=== PATIENT | male | born 2000 | race Caucasian/White ===

== ENCOUNTER 2019-09-22 08:36 | Inpatient (IN) ==
[2019-09-22] MEDS ORDERED: ONDANSETRON INJ 2 MG/ML 2 ML VIAL IV PRN ×2 (09:37→15:57)
--- NOTE | 2019-09-22 09:49 | History & Physical Report ---
Date of Service September 22, 2019 Assessment & Plan (1) Hypotension: (2) Bradycardia: (3) Episode of syncope: - Admit to ICU - Blood culture x 2, lactic acid, CBC, BMP, lymes titre, mag and phos now - Urine culture - Reviewed outside hospital imaging which included CT of head which showed ch ronic changes of CP without acute findings, and CT of the chest which was negative for pulmonary findings. Will ask that the disc is uploaded into PACs system - Continue fluids - Checking Lyme, Ehrlichia, anaplasmosis and peripheral smear now - Continue IV doxycycline and Rocephin - s/p atropine 0.5 mg x 2 doses administered at OSH, Dopamine infusion started per ICU - Cardiology consult- Possible that the patient may require temporary cardiac pacemaker placed, keep n.p.o. for now with possible procedure - EKG reviewed showing sinus bradycardia with heart rate in the 40s (4) Cerebral palsy: - Chronic, High functioning individual, runs 2 miles per day, Works at [employer], engaged, has a 4-month-old son as well as is step father to 3-year-old daughter (5) OUSMANE (acute kidney injury): - Cr elevated at 1.14 and BUN of 19.6, however no other labs to compare to this, likely will improve with IV fluids, follow with am labs (6) Depression: - Home meds include sertraline and seroquel, has been off these meds due to lapse in insurance but plans to resume them as an outpatient once on his [employer] insurance. Will hold for now, consider resuming but initiate at starting doses; sertraline 25 mg daily and seroquel 25 mg HS and titrate up. (7) DVT prophylaxis: - teds, scds CODE: FULL Dispo: From home, likely to remain in the hospital x 1-2 days History of Present Illness Primary Care Provider: Humble Leon This is a 19 yo M with PMHx of Cerebral palsy and tobacco use of 1 and 1/5 ppd since age 11, who presents from [facility] with increased confusion, memory changes and headache and lightheadedness which started last night. The patient notes that this started last evening when he was getting up around 4:30 AM to get ready to go to work at [employer], and noticed that he was feeling more short of breath then followed with a episode of lightheadedness and then syncopal episode. His fiance who lives with him witnessed the event. He reports it only lasted a minute or so. No trauma sustained. Pt has difficulty recalling what happened afterwards but reports that it is slowly coming back to him. He reports running 2 miles a day at baseline and is a very active person. He walks every morning to work. Patient also does not have a car therefore his family cannot visit him. When presented to the ER he was found to be bradycardic in the 40s with lowest drop being in the high 30s, and hypotensive with BP in 70s/50s. He was administered atropin 0.5 mg x 2 doses with improvement of HR into the 70s and 80s and BP improved to 105/65. Upon arrival here to the ICU, pt remains bradycardic with HR in the 40s and dopamine infusion has been ordered to start. His BP is 99/45. WBC = 14 K. There is concern for tick borne illness so lyme, anaplasmosis, ehrlichia labs have been sent and pt has been started empirically on doxycycline. He has been admitted to our ICU for further workup. Allergies Allergy/AdvReac Type Severity Reaction Status Date / Time amoxicillin Allergy Unknown Verified 09/22/19 13:57 Home Medications Home Medications Medication Instructions Recorded Confirmed Type Seroquel 75 mg PO HS 09/22/19 09/22/19 History sertraline 75 mg PO DAILY 09/22/19 09/22/19 History Past Med/Surg History Medical History (Updated 09/23/19 @ 07:46 by Manfred Hooper) Cerebral palsy Depression Family History (Updated 09/23/19 @ 07:46 by Manfred Hooper) Other Family history non-contributory Social History Smoking Status: Current every day smoker Tobacco Cessation Education Requested by Patient: No Hx Alcohol Use: No Hx Substance Use: No Communication Ability: Effective Product Assurance Engineer Required: No Beliefs That Will Affect Care: None Current Living Situation: Family Feels Safe at Home: Yes Safety Concerns: Feels Safe At This Time Review of Systems Review of Systems: Constitutional: No fever, sweats or chills, no current lightheadedness Eyes: No diplopia, no worsening or blurred vision ENT: normal hearing, no trouble swallowing Respiratory: + as per hpi with approx 30 min of SOB preceding syncopal event. No cough, sputum, dyspnea at rest or on exertion Cardiovascular: No chest pain, tightness or palpitations Abdomen: No pain, nausea, vomiting, diarrhea or constipation Musculoskeletal: No joint pain, calf pain, swelling Neurologic: No weakness, numbness/tingling, or balance problems Psychiatric: No anxiety or depression Skin: No rash or itch Physical Exam Physical Exam: General: awake, alert, no apparent distress, thin Head: Normocephalic, atraumatic ENT: PERRL, EOMI, no pharyngeal exudate, mucous membranes moist Chest: Clear to auscultation, on room air, no adventitious breath sounds Cardiac: Sinus bradycardia with HR in 30-40s at rest, with movement for lunge exam and rolling over HR increased to 60. No murmur, no JVD, 2+ peripheral pulses, good capillary refill Abdominal: NABS x 4 quadrants, soft, nondistended, nontender to palpation, no rebound, guarding or tenderness Extremities: Normal inspection, no peripheral edema or erythema, calfs nontender to palpation Psych: Normal mood and affect Neuro: AAO x 3, strength intact bilaterally and rated 5/5, no motor deficits, speech is clear, no peripheral sensory deficits Skin: no rash or erythema Results & Data Results & Data ([facility]) Diagnostic Findings CT head Impression: Subtle low attenuation of posterior left parieto-occipital cortex. This could be artifact, but nonspiecific edema or encephalomalacia are possibilities. Generalized involutional changes of the brain are also suspected, greater than usually seen in this age category. If not previously performed, an MRI of the brain is recommended. CT of the head and brain Impression: No CT evidence of acute intracranial abnormality. ECG Additional Comments: Sinus bradycardia with HR in the 40s at bedside, starting dopamine gtt Code Status & VTE Plan Code Status Full code-Discussed with the patient at bedside Supervising Physician Co-Signing Physician Notes Attending Attestation and Admission Note: Pt seen/examined, chart reviewed, care plan d/w ENE Banegas. I agree with the paris components of her documentation. 19yo male with cerebral palsy presented to [facility] after syncopal event. Upon presentation there was noted to be markedly hypotensive and bradycardic. This persisted despite IV fluids and arrangements were made for transfer at [facility] ICU. Upon arrival here placed on dopamine infusion with improvement in SBP to >100. HRs improved to high 40s/50s. Of note - with moving in bed his HR rapidly increases to >60. During my assessment patient reports feeling better. No dizziness. PMH, PSH, allergies, meds, sochx, famhx - reviewed vitals-alma rosa, BP now normal; temp wnl gen - mild dysmorphic appearance neck - no JVD heart - alma rosa, s1s2, no murmur lungs - CTA b/l abd - soft ext - no edema labs - lyme screen neg; TSH wnl; lytes wnl echo - normal lv function; normal valves A/P: 1. syncope - presumably 2nd to severe bradycardia and hypotension 2. bradycardia/hypotension - uncertain etiology; TSH wnl; not on AV cha agents; echo wnl; lytes stable; lyme neg; appreciate cardiology consult and ICU assistance; improved on dopamine. Attempt to wean off next 24 hours - if bradycardia persists need for pacer?? Defer to cardiology/EP. Could bradycardia be a "anshul's effect" from a NURSE SPECIAL process?? CT head with abnormalities noted - consider MRI brain. Manfred Hooper MD PG Care Time/CCT Total # of Minutes Spent Total Time Spent with Patient: Total time spent is greater than 50% in coordination of care (as documented) at patient's floor/unit and/or counseling patient: Coding Level of Care Code 00330 Initial Inpt Care Lvl 3 Diagnoses Hypotension I95.9 Bradycardia R00.1 Episode of syncope R55 Cerebral palsy G80.9 OUSMANE (acute kidney injury) N17.9 Depression F32.9 DVT prophylaxis Z29.9
[2019-09-22] MEDS ORDERED: STAT IV Infusion **Titration per Protocol STA (11:56)
[2019-09-22] MEDS ORDERED: DOPAMINE / D5W 400 MG/250 ML BAG IV SCH (12:00)
[2019-09-22] MEDS ORDERED: DOPamine 400MG / 250ML D5W IV ONE ×2 (12:05→12:48)
[2019-09-22] MEDS ORDERED: PATIENT'S HEIGHT AND/OR WEIGHT NEEDED SCH (12:45)
[2019-09-22 12:46] LABS: Basophils # (auto) 0.03 K/uL (0-0.2); Basophils % (auto) 0.3 %; Eosinophils # (auto) 0.12 K/uL (0-0.5); Eosinophils % (auto) 1.3 %; Hematocrit (blood only) 42.8 % (42-52); Hemoglobin 14.5 g/dL (14.0-18.0); Immature Granulocytes # (auto) 0.02 K/uL (0.00-0.02); Immature Granulocytes % (auto) 0.2 %; Lymphocytes # (auto) 2.28 K/uL (1.2-3.4); Lymphocytes % (auto) 24.4 %; Mean Corpuscular Hemoglobin 30.3 pg (25-34); Mean Corpuscular Volume 89.4 fL (80-100); Mean Platelet Volume 12.6 fL (7.4-10.4); Monocytes # (auto) 0.83 K/uL (0.11-0.59); Monocytes % (auto) 8.9 %; Neutrophils # (auto) 6.06 K/uL (1.4-6.5); Neutrophils % (auto) 64.9 %; Platelet Count 160 K/uL (130-400); RDW Coefficient of Variation 12.8 % (11.5-14.5); RDW Standard Deviation 41.8 fL (36.4-46.3); Red Blood Count 4.79 M/uL (4.7-6.1); White Blood Count 9.34 K/uL (4.8-10.8)
[2019-09-22] MEDS ORDERED: PATIENT'S ALLERGY INFO NEEDS ENTERED SCH (13:00)
[2019-09-22 13:02] LABS: Alanine Aminotransferase 12 U/L (12-78); Albumin Level 3.9 gm/dl (3.4-5.0); Aspartate Aminotransferase 16 U/L (15-37); BUN Creatinine Ratio 16.1 (10-20); Blood Urea Nitrogen 17 mg/dl (7-18); Calcium 8.6 mg/dl (8.5-10.1); Carbon Dioxide 25 mmol/L (21-32); Chloride 109 mmol/L (98-107); Est GFR (African American) 116.5; Est GFR (Non-African American) 100.5; Glucose 82 mg/dl (70-99); Magnesium 2.2 mg/dl (1.8-2.4); Potassium 4.2 mmol/L (3.5-5.1); Sodium 138 mmol/L (136-145)
[2019-09-22 13:05] LABS: Albumin Globulin Ratio 1.2 (0.9-2); Alkaline Phosphatase 47 U/L (45-117); Bilirubin,Total 1.1 mg/dl (0.2-1); Globulin 3.3 gm/dl (2.5-4.0); Phosphorus 3.2 mg/dl (2.5-4.9); Total Protein 7.2 gm/dl (6.4-8.2)
[2019-09-22 13:10] LABS: Mean Corpuscular Hgb Conc 33.9 g/dL (32-36)
[2019-09-22] MEDS ORDERED: cefTRIAXone SODIUM 2,000 MG in DEXTROSE 5% 50 ML IV SCH (13:30)
[2019-09-22] MEDS ORDERED: SODIUM CHLORIDE 0.9% 1000ML 500 ML IV ONE (13:30)
[2019-09-22] MEDS ORDERED: GLUCAGON 3 MG in SYRINGE 0 ML IV STA (13:39)
[2019-09-22] MEDS: DOXYCYCLINE HYCLATE 100 MG in DEXTROSE 5% 100 ML IV SCH (13:50)
[2019-09-22 13:51] LABS: Lyme Ab IgG w/WB Rflx Negative (Negative); Lyme Ab IgM w/WB Rflx Negative (Negative)
--- NOTE | 2019-09-22 13:57 | Critical Care Consultation ---
Date of Consultation September 22, 2019 Assessment & Plan (1) Symptomatic bradycardia: --Symptomatic bradycardia Patient is not on any beta-blockers any blood pressure medications UDS is positive only for marijuana, TSH is within normal limit There is questionable history of patient taking something from the street --> We will give empiric glucagon as an antidote for beta-hai Lyme titers have been sent which are negative --> Rocephin which was empirically started will be discontinued Continue with doxycycline for the time being. I will start the patient on dopamine to increase the heart rate. At the time of examination when the patient is talking his heart rate goes up to 70s and it is maintaining good blood pressure. There is no emergent need for transvenous pacing. Cardiology has been consulted and they agree with the plan. --Daily marijuana use Advised to quit --Daily smoker Advised to quit --Prophylaxis VTE: IPC's GI: None Lines: Peripheral Diet: Regular Plan: Monitor for any signs of hemodynamic compromise. We will put a transvenous pacemaker if need be I have personally spent 63 minutes of critical care time in the direct management of this patient. This is a life/limb threatening event. This includes time spent evaluating patient, direct bedside care, chart review, placing orders, interpretation of diagnostic studies, discussion with consultants, patient, and family members, as well as other required patient management activities. This time is exclusive of all separately billable procedures, and teaching time and separate from and in addition to any other critical care service time. Please note the above document was generated using voice recognition software. It may contain grammatical, syntax or spelling errors. (2) Hypotension: (3) Depression: (4) Cerebral palsy: History of Present Illness Attending Physician: Manfred Hooper History of Present Illness 19-year-old male with past medical history of mild cerebral palsy, active smoker, does marijuana on a daily basis was brought in from [facility] because of syncopal episodes which she had since last 2 nights. His fiance witnessed the syncopal episode there was no seizure-like activity. When he was presented to the ER his heart was in the 40s with lowest being in high 30s and hypotensive episode of 70s over 50s. He did get 0.5 mg x 2 of atropine and his heart rate went up to 70s and blood pressure improved to systolic 105. When he came to the ICU at the time of examination patient denies any chest pain, no shortness of breath, no dizziness. His heart rate is in the mid 40s to low 50s. Map blood pressure is low 60s to mid 60s. Patient denies any nausea or vomiting. Patient denies any fever or chills. No dysuria, no diarrhea. Patient denies any recent travel history. He denies any tick bite. He says that he is usually very careful about them. Patient was asked if he is doing any other illicit drugs he denied. But patient's father called and said that he is not sure if he is taking anything from the street. There is no personal or family history of any heart disease. No personal family history of lung disease or sarcoidosis. No autoimmune disease personally or in the family. Social history: Daily smoker, marijuana use, social alcohol Allergies Allergy/AdvReac Type Severity Reaction Status Date / Time amoxicillin Allergy Unknown Verified 09/22/19 13:57 Home Medications Home Medications Medication Instructions Recorded Confirmed Type Seroquel 75 mg PO HS 09/22/19 09/22/19 History sertraline 75 mg PO DAILY 09/22/19 09/22/19 History Patient History Medical History (Updated 09/22/19 @ 14:47 by Louie Maloney MD) Depression Social History Smoking Status: Current every day smoker Tobacco Cessation Education Requested by Patient: No Hx Alcohol Use: No Hx Substance Use: No Communication Ability: Effective System Trainer Required: No Beliefs That Will Affect Care: None Current Living Situation: Family Feels Safe at Home: Yes Safety Concerns: Feels Safe At This Time Review of Systems Review of Systems: All systems reviewed & are unremarkable except as noted in HPI & below Physical Exam Physical Exam: Constitutional: No acute distress HEENT: EOMI, PERRLA Respiratory system: Good air entry bilaterally, no wheeze, no rhonchi, no crackles CVS: S1-S2 positive, no murmurs or gallops, bradycardia Abdomen: Soft, nontender, nondistended, positive bowel sounds x4 Extremities: +2 pulses bilaterally radialis/ dorsalis pedis, no cyanosis, no edema Neuro: Awake alert oriented x3 Psych: Normal mood and affect G/U: No Luna Bedside Ultrasound: Lung: No B-lines appreciated bilaterally, no pleural effusion bilaterally Heart: Good fraction, RVOT normal in size, no pericardial effusion, IVC normal in size Abdomen: No free fluid Results & Data Results & Data ([facility]) Laboratory Results 09/22/19 12:22 09/22/19 12:22 [facility] Procedure Codes (Charges) Pulmonary/Thoracic Procedure 1: Pulmonary and Thoracic: 15198 US, Chest, real time with imaging doc umentation Coding Level of Care Code Critical Care 1st 30-74 mins Diagnoses Symptomatic bradycardia R00.1 Hypotension I95.9 Depression F32.9 Cerebral palsy G80.9 CPT Codes Pulmonary/Thoracic - Pulmonary and Thoracic: 80313 US, Chest, real time with imaging documentation ([id number]) Time Spent (min) 61
--- NOTE | 2019-09-22 14:24 | Cardiology Consultation ---
Date of Consultation September 22, 2019 Assessment & Plan (1) Symptomatic bradycardia: (2) Hypotension: ASSESSMENT/PLAN: 1. Symptomatic sinus bradycardia: He is now asymptomatic while on dopamine with mild bradycardia to normal heart rate and normalized blood pressure. Continue dopamine to maintain adequate heart rate. Atropine if needed. Continue to search for reversible causes of bradycardia. Avoid any AV cha blocking agents or other medications that could slow intrinsic heart rate. When able, wean dopamine. If unable to wean dopamine, and no reversible cause noted, may require pacemaker placement. There is no urgent indication at this time as he has stabilized with low-dose dopamine. Will discuss with zone maintenance technician to make them aware. Recommend drug screen given his father's concern. TSH normal. Echocardiogram recommended. No role for transcutaneous pacing at this time. 2. Hypotension: Blood pressure reportedly improved after atropine when presenting with heart rate in the upper 30s to lower 40s. Blood pressure has normalized while on low-dose dopamine. He has received IV fluids as well. Infectious workup pending. 3. Disposition: Cardiology will continue to follow. Plan of care has been discussed with ICU team. Highly complex medical issues. 35 minutes critical care time for symptomatic bradycardia requiring inotropic infusion. Time also spent discussing patient care with critical care team and reviewing records. History of Present Illness Reason for Consultation: Bradycardia and hypotension Requesting Physician: Candace Youngblood Attending Physician: Manfred Hooper History of Present Illness Mr. Sherman is a 19-year-old gentleman with history significant for mild cerebral palsy who was transferred here from [facility] for hypotension and bradycardia. The history that he provided me differs from the presenting history and physical. According to the presenting history and physical, he noted shortness of breath and lightheadedness at approximately 4:30 a.m. when he was getting re harris to go to work at [employer]. He reported a syncopal event. This apparently was witnessed by his fiancee, lasting only a minute or so, but no trauma. When specifically asked about syncope, he denies syncope to me, despite being asked several times. He states that he was lightheaded when he woke up at approximately 4:30 a.m. and did not know where he was. He thinks that he may have fallen asleep at 1 point while laying in bed but states that that would be typical for him as he was tired. he does agree that he may have been disoriented and therefore his fiancee urged that he be evaluated at the hospital. Apparently when he presented to the emergency department his heart rate was in the 40s and at times in the upper 30s. He was hypotensive with a blood pressure of 70s/50s. He was given atropine 0.5 mg x2 doses with improvement of heart rate into the 70s and 80s as well as normalization of his blood pressure. When he arrived here in the ICU, his heart rate was in the 40s and he was started on dopamine infusion at 5 micrograms/kilogram per minute with improvement of his heart rate. He is now mostly in the 40s to 50s and with conversation, can increase into the 60s. His blood pressure has stabilized. He states that he feels back to usual. He believes that this whole incident may be due to the fact that he has been avoiding eating, trying to ignore his hunger pains. When asked about substance abuse, he admits that he smokes marijuana 3 times per day. When asked if he uses any other illicit drugs or if his marijuana could be laced with other drugs, he stated no and then abruptly stated that he has said enough about that. According to ICU staff, his father apparently called with concerns that he may be using some illicit drug. He denies any tick bite, but he is being evaluated for tick-borne illness and has empirically been started on doxycycline. He denies chest pain, rash, fevers, chills, abdominal pain, nausea, vomiting, diarrhea, melena, hematochezia, hematuria, or other bleeding. He denies palpitations. He has been prescribed Seroquel and Zoloft approximately 1 year ago but admits that he has not been taking it for almost a year. Review of systems: As above. Family history: Grandfather from [place] at the age of 73. No known premature CAD. Social history: Has smoked 1.5 packs of cigarettes per day since the age of 11. No alcohol. Admits to smoking marijuana 3 times per day. Lives with his fiancee. He has 2 children ( 3 years and 4 months in age). He works at [employer]. He lives in [place]. He is unaccompanied. Allergies Allergy/AdvReac Type Severity Reaction Status Date / Time amoxicillin Allergy Unknown Verified 09/22/19 13:57 Home Medications Home Medications Medication Instructions Recorded Confirmed Type Seroquel 75 mg PO HS 09/22/19 09/22/19 History sertraline 75 mg PO DAILY 09/22/19 09/22/19 History Patient History Medical History (Updated 09/22/19 @ 14:47 by Louie Maloney MD) Depression Social History Smoking Status: Current every day smoker Tobacco Cessation Education Requested by Patient: No Hx Alcohol Use: No Hx Substance Use: No Communication Ability: Effective Compensation Agent Required: No Beliefs That Will Affect Care: None Current Living Situation: Family Feels Safe at Home: Yes Safety Concerns: Feels Safe At This Time Physical Exam Physical Exam: Gen.: No acute distress. Alert and oriented. HEENT: Anicteric sclera. Neck: No JVD. No bruits. Normal carotid upstrokes bilaterally. Cardiac: PMI was nondisplaced. No ventricular heave. Regular with episodes of irregularity. Normal S1-S2. No murmurs, rubs, or gallops. Pulmonary: Clear to auscultation bilaterally without wheezes, rales, or rhonchi. Abdomen: Soft, nontender, nondistended, with normoactive bowel sounds. No bruits noted. Extremities: 2+ radial pulses bilaterally. 2+ posterior tibialis pulses bilaterally. No edema or cyanosis. Psychiatric: Affect appears appropriate. Results & Data ([facility]) Vital Signs (Past 12 Hours) oxygen saturation 95% on room air. Temperature 36.6 C. Respiration rate 18. heart rate 40s to 60s. Systolic blood pressure now 100s mmHg. Laboratory Results Laboratory Results - last 24 hr 09/22/19 09/22/19 09/22/19 12:20 12:20 12:20 WBC RBC Hgb Hct MCV MCH MCHC RDW Std Deviation RDW Coeff of Jovanni Plt Count MPV Immature Gran % (Auto) Neut % (Auto) Lymph % (Auto) [place] % (Auto) Eos % (Auto) Baso % (Auto) Neut # (Auto) Lymph # (Auto) [place] # (Auto) Eos # (Auto) Baso # (Auto) Immature Gran # (Auto) Peripher Smr Path Cons Sodium Potassium Chloride Carbon Dioxide Anion Gap BUN Creatinine Est Cr Clr Drug Dosing Est GFR ( Amer) Est GFR (Non-Af Amer) BUN/Creatinine Ratio Glucose Lactate 0.6 Calcium Phosphorus Magnesium Total Bilirubin AST ALT Alkaline Phosphatase Total Protein Albumin Globulin Albumin/Globulin Ratio TSH Nasal Screen MRSA (PCR) Anaplasma Smear A. phagocytophilum DNA Lyme Disease IgG Ab Lyme Disease IgM Ab COVID-19 Eval Order Covid19 Done at [facility] COVID-19 PCR NEGATIVE 09/22/19 09/22/19 09/22/19 12:22 12:22 12:22 WBC 9.34 RBC 4.79 Hgb 14.5 Hct 42.8 MCV 89.4 MCH 30.3 MCHC 33.9 RDW Std Deviation 41.8 RDW Coeff of Jovanni 12.8 Plt Count 160 MPV 12.6 H Immature Gran % (Auto) 0.2 Neut % (Auto) 64.9 Lymph % (Auto) 24.4 [place] % (Auto) 8.9 Eos % (Auto) 1.3 Baso % (Auto) 0.3 Neut # (Auto) 6.06 Lymph # (Auto) 2.28 [place] # (Auto) 0.83 H Eos # (Auto) 0.12 Baso # (Auto) 0.03 Immature Gran # (Auto) 0.02 Peripher Smr Path Cons Sodium 138 Potassium 4.2 Chloride 109 H Carbon Dioxide 25 Anion Gap 4.0 BUN 17 Creatinine 1.06 Est Cr Clr Drug Dosing Not Reportable Est GFR ( Amer) 116.5 Est GFR (Non-Af Amer) 100.5 BUN/Creatinine Ratio 16.1 Glucose 82 Lactate Calcium 8.6 Phosphorus 3.2 Magnesium 2.2 Total Bilirubin 1.1 H AST 16 ALT 12 Alkaline Phosphatase 47 Total Protein 7.2 Albumin 3.9 Globulin 3.3 Albumin/Globulin Ratio 1.2 TSH Nasal Screen MRSA (PCR) Anaplasma Smear A. phagocytophilum DNA Lyme Disease IgG Ab Negative Lyme Disease IgM Ab Negative COVID-19 Eval Order COVID-19 PCR 09/22/19 09/22/19 09/22/19 12:22 12:22 12:22 WBC RBC Hgb Hct MCV MCH MCHC RDW Std Deviation RDW Coeff of Jovanni Plt Count MPV Immature Gran % (Auto) Neut % (Auto) Lymph % (Auto) [place] % (Auto) Eos % (Auto) Baso % (Auto) Neut # (Auto) Lymph # (Auto) [place] # (Auto) Eos # (Auto) Baso # (Auto) Immature Gran # (Auto) Peripher Smr Path Cons Cancelled Sodium Potassium Chloride Carbon Dioxide Anion Gap BUN Creatinine Est Cr Clr Drug Dosing Est GFR ( Amer) Est GFR (Non-Af Amer) BUN/Creatinine Ratio Glucose Lactate Calcium Phosphorus Magnesium Total Bilirubin AST ALT Alkaline Phosphatase Total Protein Albumin Globulin Albumin/Globulin Ratio TSH 1.140 Nasal Screen MRSA (PCR) Anaplasma Smear Cancelled A. phagocytophilum DNA Pending Lyme Disease IgG Ab Lyme Disease IgM Ab COVID-19 Eval Order COVID-19 PCR 09/22/19 12:23 WBC RBC Hgb Hct MCV MCH MCHC RDW Std Deviation RDW Coeff of Jovanni Plt Count MPV Immature Gran % (Auto) Neut % (Auto) Lymph % (Auto) [place] % (Auto) Eos % (Auto) Baso % (Auto) Neut # (Auto) Lymph # (Auto) [place] # (Auto) Eos # (Auto) Baso # (Auto) Immature Gran # (Auto) Peripher Smr Path Cons Sodium Potassium Chloride Carbon Dioxide Anion Gap BUN Creatinine Est Cr Clr Drug Dosing Est GFR ( Amer) Est GFR (Non-Af Amer) BUN/Creatinine Ratio Glucose Lactate Calcium Phosphorus Magnesium Total Bilirubin AST ALT Alkaline Phosphatase Total Protein Albumin Globulin Albumin/Globulin Ratio TSH Nasal Screen MRSA (PCR) Pending Anaplasma Smear A. phagocytophilum DNA Lyme Disease IgG Ab Lyme Disease IgM Ab COVID-19 Eval Order COVID-19 PCR Diagnostic Findings Telemetry personally reviewed: Sinus rhythm. No high-grade AV block noted. Medications Administered Current Inpatient Medications Doxycycline Hyclate 100 mg/ (Dextrose) 110 mls @ 50 mls/hr IV Q12H REPLACED BY [facility] Stop: 09/24/19 13:29 Last Admin: 09/22/19 13:50 Dose: 50 mls/hr Documented by: Dopamine HCl/Dextrose (Dopamine / D5w) 400 mg in 250 mls @ 10.65 mls/hr IV .[id number] REPLACED BY [facility]; Protocol Stop: 10/22/19 11:59 Last Admin: 09/22/19 14:16 Dose: 5 mcg/kg/min, 10.7 mls/hr Documented by: Ceftriaxone Sodium 2,000 mg/ (Dextrose) 70 mls @ 100 mls/hr IV Q24H REPLACED BY [facility]; Protocol Stop: 10/02/19 13:29 Last Admin: 09/22/19 14:15 Dose: 100 mls/hr Documented by: Ondansetron HCl (Ondansetron Inj 2 Mg/Ml 2 Ml Vial) 4 mg IV Q4H PRN PRN Reason: Nausea And Vomiting Stop: 10/22/19 09:36 PG Care Time/CCT Total # of Minutes Spent Total Time Spent with Patient: Total time spent is greater than 50% in coordination of care (as documented) at patient's floor/unit and/or counseling patient: Critical Care Time: Yes Total Critical Care Time: 35 Coding Level of Care Code None Diagnoses Symptomatic bradycardia R00.1 Hypotension I95.9 Additional Codes Critical Care Time - Critical Care Time: Yes ([id number]) Comment Critical care time
--- NOTE | 2019-09-22 15:32 | XCELERA ---
[id number]
[2019-09-22 16:21] LABS: Appearance Urine Clear (Clear); Bilirubin Urine Negative (Negative); Blood Urine Negative (Negative); Color Urine Yellow; Glucose Urine UA Negative (Negative); Ketones Urine 1+ (Negative); Leukocyte Esterase Urine Negative (Negative); Nitrite Urine Negative (Negative); Protein Urine Negative (Negative); Specific Gravity Urine 1.019 (1.000-1.030); Urobilinogen Urine Negative (Negative); pH Urine 5.5 (4.5-7.5)
[2019-09-22 16:50] LABS: Amphetamines+Metham, Urine Neg (Neg); Barbiturates, Urine Neg (Neg); Benzodiazepine, Urine Neg (Neg); Cocaine, Urine Neg (Neg); MDMA (Ecstacy), Urine Neg (Neg); Methadone, Urine Neg (Neg); Opiate, Urine Neg (Neg); Phencyclidine, Urine Neg (Neg)
--- NOTE | 2019-09-22 19:17 | XRay Report ---
XR chest 1V portable HISTORY: Shortness of breath. COMPARISON: None. FINDINGS: The lungs are clear. Cardiac silhouette is normal in size. No pleural effusions. No pneumot horax. IMPRESSION: No acute process. ACT 112: Negative or not required by law. Electronically signed by: Juma Trujillo M.D. 09/22/2019 7:16 PM
[2019-09-23] MEDS: DOXYCYCLINE HYCLATE 100 MG in DEXTROSE 5% 100 ML IV SCH (01:26)
[2019-09-23 04:34] LABS: Basophils # (auto) 0.02 K/uL (0-0.2); Basophils % (auto) 0.2 %; Eosinophils # (auto) 0.21 K/uL (0-0.5); Eosinophils % (auto) 2.1 %; Hematocrit (blood only) 43.8 % (42-52); Hemoglobin 14.5 g/dL (14.0-18.0); Immature Granulocytes # (auto) 0.02 K/uL (0.00-0.02); Immature Granulocytes % (auto) 0.2 %; Lymphocytes # (auto) 3.37 K/uL (1.2-3.4); Lymphocytes % (auto) 33.9 %; Mean Corpuscular Hemoglobin 29.1 pg (25-34); Mean Corpuscular Hgb Conc 33.1 g/dL (32-36); Monocytes % (auto) 12.1 %; Neutrophils # (auto) 5.12 K/uL (1.4-6.5); Neutrophils % (auto) 51.5 %; Platelet Count 165 K/uL (130-400); RDW Coefficient of Variation 12.8 % (11.5-14.5); RDW Standard Deviation 40.9 fL (36.4-46.3); Red Blood Count 4.98 M/uL (4.7-6.1); White Blood Count 9.94 K/uL (4.8-10.8)
[2019-09-23 04:56] LABS: BUN Creatinine Ratio 14.2 (10-20); Blood Urea Nitrogen 13 mg/dl (7-18); Calcium 8.5 mg/dl (8.5-10.1); Carbon Dioxide 24 mmol/L (21-32); Chloride 109 mmol/L (98-107); Est GFR (African American) 136.5; Est GFR (Non-African American) 117.8; Glucose 107 mg/dl (70-99); Magnesium 2.1 mg/dl (1.8-2.4); Phosphorus 3.7 mg/dl (2.5-4.9); Potassium 3.6 mmol/L (3.5-5.1); Sodium 140 mmol/L (136-145)
[2019-09-23] MEDS ORDERED: POTASSIUM CHLORIDE 20 MEQ TABCR PO STA (05:35)
--- NOTE | 2019-09-23 06:34 | Electrocardiogram Report ---
Test Reason : Blood Pressure : / mmHG Vent. Rate : 040 BPM Atrial Rate : 040 BPM P-R Int : 158 ms QRS Dur : 102 ms QT Int : 482 ms P-R-T Axes : 073 091 076 degrees QTc Int : 392 ms Marked sinus bradycardia Rightward axis Abnormal ECG No previous ECGs available Confirmed by Louie Maloney ([id number]) on 09/23/2019 6:34:26 AM Referred By: REFERRED SELF Confirmed By:Louie Maloney
--- NOTE | 2019-09-23 08:50 | Critical Care Progress Note ---
Date of Service September 23, 2019 Assessment & Plan (1) Symptomatic bradycardia: --Symptomatic bradycardia Patient is not on any beta-blockers any blood pressure medications UDS is positive only for marijuana, TSH is within normal limit There is questionable history of patient taking something from the street --> s/p 1 dose of glucagon on 09/22/2019 Lyme titers have been sent which are negative --> Rocephin which was empirically started will be discontinued Continue with doxycycline for the time being. On dopamine currently. There is no emergent need for transvenous pacing. Nausea board --Daily marijuana use Advised to quit --Daily smoker Advised to quit --History of mild cerebral palsy Patient called in to make his own decisions --History of depression No suicidal ideation Not taking any medication since last couple of months as he has no insurance --Prophylaxis VTE: IPC's GI: None Lines: Peripheral Diet: Regular Plan: So far no reversible etiology of symptomatic bradycardia has been identified. Try to titrate off dopamine and see if the patient's heart rate and blood pressure goes down. If the patient continues to have bradycardia and hypotension off dopamine will likely need pacemaker to be placed. I have personally spent 37 minutes of critical care time in the direct management of this patient. This is a life/limb threatening event. This includes time spent evaluating patient, direct bedside care, chart review, placing orders, interpretation of diagnostic studies, discussion with consultants, patient, and family members, as well as other required patient management activities. This time is exclusive of all separately billable procedures, and teaching time and separate from and in addition to any other critical care service time. Please note the above document was generated using voice recognition software. It may contain grammatical, syntax or spelling errors. (2) Hypotension: (3) Depression: (4) Cerebral palsy: Admission and Anticipated Discharge Date Admission Date: September 22, 2019 Subjective Patient seen and examined at bedside. No acute distress, no adverse events overnight. Later last evening patient had an episode of vomiting. No repeat episodes. Patient was able to eat dinner without any issues. Patient has been on dopamine 5. He has been bradycardic but asymptomatic. Map Is been greater than 65 Denies any dizziness, no shortness of breath, no palpitation, no headache, no blurry vision. Review of Systems Review of Systems: All systems reviewed & are unremarkable except as noted in HPI & below Physical Exam Physical Exam: Constitutional: No acute distress HEENT: EOMI, PERRLA Respiratory system: Good air entry bilaterally, no wheeze, no rhonchi, no crackles CVS: S1-S2 positive, no murmurs or gallops, bradycardia Abdomen: Soft, nontender, nondistended, positive bowel sounds x4 Extremities: +2 pulses bilaterally radialis/ dorsalis pedis, no cyanosis, no edema Neuro: Awake alert oriented x3 Psych: Normal mood and affect G/U: No [place] Skin: no rashes, warm and dry Lymphatic: no cervical or axillary lymphadenopathy Results & Data Results & Data ([facility]) Vital Signs (Past 12 Hours) Vital Signs Temp Pulse Resp BP Pulse Ox Pulse Ox 09/23/19 08:00 40 L 98 09/23/19 05:25 48 L 22 107/59 L 97 09/23/19 04:55 41 L 16 112/55 L 98 09/23/19 04:40 46 L 11 L 117/71 97 09/23/19 04:26 41 L 18 126/50 L 97 09/23/19 04:10 43 L 12 124/65 97 09/23/19 04:00 39 L 12 97 09/23/19 03:55 45 L 12 122/65 97 09/23/19 03:40 36.6 C 53 L 18 94/69 L 94 09/23/19 03:25 41 L 17 112/67 97 09/23/19 03:10 50 L 12 111/51 L 98 09/23/19 02:55 42 L 15 108/59 L 97 09/23/19 02:40 43 L 18 108/57 L 97 09/23/19 02:25 45 L 16 110/56 L 97 09/23/19 02:10 45 L 15 109/54 L 99 09/23/19 02:00 48 L 20 96 09/23/19 01:55 43 L 12 102/56 L 97 09/23/19 01:40 44 L 15 112/60 97 09/23/19 01:26 41 L 15 99/65 L 98 09/23/19 01:10 54 L 14 103/55 L 95 09/23/19 00:55 43 L 13 113/38 L 94 09/23/19 00:10 52 L 15 107/50 L 98 09/23/19 00:00 42 L 20 98 09/22/19 23:55 48 L 24 109/44 L 98 09/22/19 23:40 45 L 13 95/52 L 98 09/22/19 23:25 52 L 13 121/63 98 09/22/19 23:10 36.7 C 46 L 20 111/46 L 97 09/22/19 22:42 47 L 22 107/48 L 96 09/22/19 22:10 55 L 20 93/59 L 97 09/22/19 21:55 53 L 22 114/51 L 98 09/22/19 21:39 49 L 19 118/55 L 97 09/22/19 21:25 44 L 13 120/50 L 95 09/22/19 21:13 49 L 20 112/49 L 100 09/22/19 21:10 55 L 22 65/57 L 97 09/22/19 20:55 54 L 17 102/49 L 99 09/23/19 04:23 09/23/19 04:23 Coding Level of Care Code Critical Care 1st 30-74 mins Diagnoses Symptomatic bradycardia R00.1 Hypotension I95.9 Depression F32.9 Cerebral palsy G80.9 Time Spent (min) 37
--- NOTE | 2019-09-23 09:51 | Cardiology Progress Note ---
Date of Service September 23, 2019 Assessment & Plan (1) Symptomatic bradycardia: (2) Hypotension: ASSESSMENT/PLAN: 1. Bradycardia: Patient did present with significant bradycardia. With this was the etiology for his symptoms or hypotension is unclear. his dopamine infusion was discontinued at approximately 8 a.m. this morning. While his heart rate continues to be low at rest, he is not symptomatic and his blood pressure also seems reasonable given his age and body weight. The patient mentions that he runs to work approximately 2 miles several times per week. He also walks home. Generally speaking he is an active individual who does not have symptoms associated with activity. More recently he has had some symptoms of exercise intolerance and "syncope" when walking home from work. However, he freely admits that he does not eat and drink enough and that it has been very hot recently. He actually has not had the symptoms over the past 2 weeks. I think would be unusual for him to develop such significant sinus node dysfunction in such a short time frame. I think would be unusual for him to be able to jog to work a few days ago and require a pacemaker today. I suspect he has a lower heart rate due to conditioning in age. He is very thin, but does not appear to have anorexia. Low blood pressure and low heart rate could be associated with adrenal insufficiency, but this appears to have resolved without any specific intervention. He had some mild gastrointestinal symptoms and mental confusion leading up to admission, but no back pain or abdominal discomfort suggestive of adrenal insufficiency. He may in fact have abnormal sinus node function, but in the absence of symptoms does not require any specific intervention. Outside of a permanent pacemaker the only potential intervention would be oral theophylline. I would advocate having him ambulate around the fine. If his heart rate rises appropriately and he is asymptomatic then no specific intervention is required at this time. However, he should be encouraged to maintain a good diet with adequate hydration. He should have some form of outpatient follow-up in order to reassess his heart rate and symptoms. 2. Hypotension: At the time my evaluation he had been off of dopamine for approximately 1 hour. His blood pressure was around 100 systolic. I suspect his blood pressure runs on the lower side given his age and body weight. Admission and Anticipated Discharge Date Admission Date: September 22, 2019 Subjective This morning patient claims to be feeling well. He states that he is anxious to get up out of bed am being ambulatory. He did report some nausea an episode of vomiting yesterday, but tolerated as breakfast and has no abdominal com plaints today. He is not reporting dizziness or lightheadedness. He is not reporting symptoms of chest discomfort. No breathing difficulty. The cognitive dysfunction described at the time of admission also appears to have resolved. Review of Systems Review of Systems: Per HPI Physical Exam Physical Exam: The patient is alert and oriented. Mood and affect appeared normal. He answered all questions appropriately. HEENT: Pupils are equal and reactive to light and accommodation. Extraocular movements are intact. The sclerae are anicteric. Neuro: Cranial nerves intact Neck: Patient's neck is supple. He has palpable carotid pulses bilaterally without bruits on auscultation. There is no evidence of jugular venous distention. The thyroid is not enlarged. Lungs: Clear to auscultation bilaterally. He has good air movement without use of accessory muscles. No rales wheezes or rhonchi. Cardiac: Heart demonstrates a regular rate and rhythm. Normal S1 and S2. No murmurs on examination. Pulses: The patient has palpable radial pulses bilaterally that are equal in intensity Extremities: There was no evidence of hypoperfusion. There is no cyanosis or clubbing. There is no edema. Skin: I did not appreciate any rashes on examination today. Results & Data ([facility]) Vital Signs (Past 12 Hours) Vital Signs Temp Pulse Resp BP Pulse Ox Pulse Ox 09/23/19 08:00 40 L 98 09/23/19 05:25 48 L 22 107/59 L 97 09/23/19 04:55 41 L 16 112/55 L 98 09/23/19 04:40 46 L 11 L 117/71 97 09/23/19 04:26 41 L 18 126/50 L 97 09/23/19 04:10 43 L 12 124/65 97 09/23/19 04:00 39 L 12 97 09/23/19 03:55 45 L 12 122/65 97 09/23/19 03:40 36.6 C 53 L 18 94/69 L 94 09/23/19 03:25 41 L 17 112/67 97 09/23/19 03:10 50 L 12 111/51 L 98 09/23/19 02:55 42 L 15 108/59 L 97 09/23/19 02:40 43 L 18 108/57 L 97 09/23/19 02:25 45 L 16 110/56 L 97 09/23/19 02:10 45 L 15 109/54 L 99 09/23/19 02:00 48 L 20 96 09/23/19 01:55 43 L 12 102/56 L 97 09/23/19 01:40 44 L 15 112/60 97 09/23/19 01:26 41 L 15 99/65 L 98 09/23/19 01:10 54 L 14 103/55 L 95 09/23/19 00:55 43 L 13 113/38 L 94 09/23/19 00:10 52 L 15 107/50 L 98 09/23/19 00:00 42 L 20 98 09/22/19 23:55 48 L 24 109/44 L 98 09/22/19 23:40 45 L 13 95/52 L 98 09/22/19 23:25 52 L 13 121/63 98 09/22/19 23:10 36.7 C 46 L 20 111/46 L 97 09/22/19 22:42 47 L 22 107/48 L 96 09/22/19 22:10 55 L 20 93/59 L 97 09/22/19 21:55 53 L 22 114/51 L 98 Laboratory Results Abnormal Lab Results 09/22/19 09/22/19 09/22/19 12:20 12:20 12:20 WBC RBC Hgb Hct MCV MCH MCHC RDW Std Deviation RDW Coeff of Jovanni Plt Count MPV Immature Gran % (Auto) Neut % (Auto) Lymph % (Auto) [place] % (Auto) Eos % (Auto) Baso % (Auto) Neut # (Auto) Lymph # (Auto) [place] # (Auto) Eos # (Auto) Baso # (Auto) Immature Gran # (Auto) Peripher Smr Path Cons Sodium Potassium Chloride Carbon Dioxide Anion Gap BUN Creatinine Est Cr Clr Drug Dosing Est GFR ( Amer) Est GFR (Non-Af Amer) BUN/Creatinine Ratio Glucose Lactate 0.6 Calcium Phosphorus Magnesium Total Bilirubin AST ALT Alkaline Phosphatase Total Protein Albumin Globulin Albumin/Globulin Ratio TSH Urine Color Urine Appearance Urine pH Ur Specific [place] Urine Protein Urine Glucose (UA) Urine Ketones Urine Blood Urine Nitrite Urine Bilirubin Urine Urobilinogen Ur Leukocyte Esterase Nasal Screen MRSA (PCR) Urine Opiates Screen Ur Methadone, Qual Urine Barbiturates Ur Phencyclidine (PCP) U Amphetamin/Meth Scrn MDMA (Ecstasy) Screen U Benzodiazepines Scrn Ur Cocaine Metabolite U Marijuana (THC) Screen Anaplasma Smear Lyme Disease IgG Ab Lyme Disease IgM Ab COVID-19 Eval Order Covid19 Done at [facility] COVID-19 PCR NEGATIVE 09/22/19 09/22/19 09/22/19 12:22 12:22 12:22 WBC 9.34 RBC 4.79 Hgb 14.5 Hct 42.8 MCV 89.4 MCH 30.3 MCHC 33.9 RDW Std Deviation 41.8 RDW Coeff of Jovanni 12.8 Plt Count 160 MPV 12.6 H Immature Gran % (Auto) 0.2 Neut % (Auto) 64.9 Lymph % (Auto) 24.4 [place] % (Auto) 8.9 Eos % (Auto) 1.3 Baso % (Auto) 0.3 Neut # (Auto) 6.06 Lymph # (Auto) 2.28 [place] # (Auto) 0.83 H Eos # (Auto) 0.12 Baso # (Auto) 0.03 Immature Gran # (Auto) 0.02 Peripher Smr Path Cons Sodium 138 Potassium 4.2 Chloride 109 H Carbon Dioxide 25 Anion Gap 4.0 BUN 17 Creatinine 1.06 Est Cr Clr Drug Dosing Not Reportable Est GFR ( Amer) 116.5 Est GFR (Non-Af Amer) 100.5 BUN/Creatinine Ratio 16.1 Glucose 82 Lactate Calcium 8.6 Phosphorus 3.2 Magnesium 2.2 Total Bilirubin 1.1 H AST 16 ALT 12 Alkaline Phosphatase 47 Total Protein 7.2 Albumin 3.9 Globulin 3.3 Albumin/Globulin Ratio 1.2 TSH Urine Color Urine Appearance Urine pH Ur Specific [place] Urine Protein Urine Glucose (UA) Urine Ketones Urine Blood Urine Nitrite Urine Bilirubin Urine Urobilinogen Ur Leukocyte Esterase Nasal Screen MRSA (PCR) Urine Opiates Screen Ur Methadone, Qual Urine Barbiturates Ur Phencyclidine (PCP) U Amphetamin/Meth Scrn MDMA (Ecstasy) Screen U Benzodiazepines Scrn Ur Cocaine Metabolite U Marijuana (THC) Screen Anaplasma Smear Lyme Disease IgG Ab Negative Lyme Disease IgM Ab Negative COVID-19 Eval Order COVID-19 PCR 09/22/19 09/22/19 09/22/19 12:22 12:22 12:23 WBC RBC Hgb Hct MCV MCH MCHC RDW Std Deviation RDW Coeff of Jovanni Plt Count MPV Immature Gran % (Auto) Neut % (Auto) Lymph % (Auto) [place] % (Auto) Eos % (Auto) Baso % (Auto) Neut # (Auto) Lymph # (Auto) [place] # (Auto) Eos # (Auto) Baso # (Auto) Immature Gran # (Auto) Peripher Smr Path Cons Cancelled Sodium Potassium Chloride Carbon Dioxide Anion Gap BUN Creatinine Est Cr Clr Drug Dosing Est GFR ( Amer) Est GFR (Non-Af Amer) BUN/Creatinine Ratio Glucose Lactate Calcium Phosphorus Magnesium Total Bilirubin AST ALT Alkaline Phosphatase Total Protein Albumin Globulin Albumin/Globulin Ratio TSH 1.140 Urine Color Urine Appearance Urine pH Ur Specific [place] Urine Protein Urine Glucose (UA) Urine Ketones Urine Blood Urine Nitrite Urine Bilirubin Urine Urobilinogen Ur Leukocyte Esterase Nasal Screen MRSA (PCR) Negative Urine Opiates Screen Ur Methadone, Qual Urine Barbiturates Ur Phencyclidine (PCP) U Amphetamin/Meth Scrn MDMA (Ecstasy) Screen U Benzodiazepines Scrn Ur Cocaine Metabolite U Marijuana (THC) Screen Anaplasma Smear Cancelled Lyme Disease IgG Ab Lyme Disease IgM Ab COVID-19 Eval Order COVID-19 PCR 09/22/19 09/22/19 09/23/19 15:03 15:03 04:23 WBC 9.94 RBC 4.98 Hgb 14.5 Hct 43.8 MCV 88.0 MCH 29.1 MCHC 33.1 RDW Std Deviation 40.9 RDW Coeff of Jovanni 12.8 Plt Count 165 MPV 12.0 H Immature Gran % (Auto) 0.2 Neut % (Auto) 51.5 Lymph % (Auto) 33.9 [place] % (Auto) 12.1 Eos % (Auto) 2.1 Baso % (Auto) 0.2 Neut # (Auto) 5.12 Lymph # (Auto) 3.37 [place] # (Auto) 1.20 H Eos # (Auto) 0.21 Baso # (Auto) 0.02 Immature Gran # (Auto) 0.02 Peripher Smr Path Cons Sodium Potassium Chloride Carbon Dioxide Anion Gap BUN Creatinine Est Cr Clr Drug Dosing Est GFR ( Amer) Est GFR (Non-Af Amer) BUN/Creatinine Ratio Glucose Lactate Calcium Phosphorus Magnesium Total Bilirubin AST ALT Alkaline Phosphatase Total Protein Albumin Globulin Albumin/Globulin Ratio TSH Urine Color Yellow Urine Appearance Clear Urine pH 5.5 Ur Specific [place] 1.019 Urine Protein Negative Urine Glucose (UA) Negative Urine Ketones 1+ H Urine Blood Negative Urine Nitrite Negative Urine Bilirubin Negative Urine Urobilinogen Negative Ur Leukocyte Esterase Negative Nasal Screen MRSA (PCR) Urine Opiates Screen Neg Ur Methadone, Qual Neg Urine Barbiturates Neg Ur Phencyclidine (PCP) Neg U Amphetamin/Meth Scrn Neg MDMA (Ecstasy) Screen Neg U Benzodiazepines Scrn Neg Ur Cocaine Metabolite Neg U Marijuana (THC) Screen Pos H Anaplasma Smear Lyme Disease IgG Ab Lyme Disease IgM Ab COVID-19 Eval Order COVID-19 PCR 09/23/19 04:23 WBC RBC Hgb Hct MCV MCH MCHC RDW Std Deviation RDW Coeff of Jovanni Plt Count MPV Immature Gran % (Auto) Neut % (Auto) Lymph % (Auto) [place] % (Auto) Eos % (Auto) Baso % (Auto) Neut # (Auto) Lymph # (Auto) [place] # (Auto) Eos # (Auto) Baso # (Auto) Immature Gran # (Auto) Peripher Smr Path Cons Sodium 140 Potassium 3.6 Chloride 109 H Carbon Dioxide 24 Anion Gap 7.0 BUN 13 Creatinine 0.93 Est Cr Clr Drug Dosing Not Reportable Est GFR ( Amer) 136.5 Est GFR (Non-Af Amer) 117.8 BUN/Creatinine Ratio 14.2 Glucose 107 H Lactate Calcium 8.5 Phosphorus 3.7 Magnesium 2.1 Total Bilirubin AST ALT Alkaline Phosphatase Total Protein Albumin Globulin Albumin/Globulin Ratio TSH Urine Color Urine Appearance Urine pH Ur Specific [place] Urine Protein Urine Glucose (UA) Urine Ketones Urine Blood Urine Nitrite Urine Bilirubin Urine Urobilinogen Ur Leukocyte Esterase Nasal Screen MRSA (PCR) Urine Opiates Screen Ur Methadone, Qual Urine Barbiturates Ur Phencyclidine (PCP) U Amphetamin/Meth Scrn MDMA (Ecstasy) Screen U Benzodiazepines Scrn Ur Cocaine Metabolite U Marijuana (THC) Screen Anaplasma Smear Lyme Disease IgG Ab Lyme Disease IgM Ab COVID-19 Eval Order COVID-19 PCR ECG Additional Comments: Telemetry reveals eric id sinus arrhythmia with occasional junctional beats. PG Care Time/CCT Total # of Minutes Spent Total Time Spent with Patient: Total time spent is greater than 50% in coordination of care (as documented) at patient's floor/unit and/or counseling patient: Coding Level of Care Code 32026 Subseq Hosp Care Lvl 3 Diagnoses Symptomatic bradycardia R00.1 Hypotension I95.9
--- NOTE | 2019-09-23 12:55 | Discharge Summary ---
Date of Service September 23, 2019 Admission HPI Per Admitting Provider This is a 19 yo M with PMHx of Cerebral palsy and tobacco use of 1 and 1/5 ppd since age 11, who presents from [facility] with increased confusion, memory changes and headache and lightheadedness which started last night. The patient notes that this started last evening when he was getting up around 4:30 AM to get ready to go to work at [employer], and noticed that he was feeling more short of breath then followed with a episode of lightheadedness and then syncopal episode. His fiance who lives with him witnessed the event. He reports it only lasted a minute or so. No trauma sustained. Pt has difficulty recalling what happened afterwards but reports that it is slowly coming back to him. He reports running 2 miles a day at baseline and is a very active person. He walks every morning to work. Patient also does not have a car therefore his family cannot visit him. When presented to the ER he was found to be bradycardic in the 40s with lowest drop being in the high 30s, and hypotensive with BP in 70s/50s. He was administered atropin 0.5 mg x 2 doses with improvement of HR into the 70s and 80s and BP improved to 105/65. Upon arrival here to the ICU, pt remains bradycardic with HR in the 40s and dopamine infusion has been ordered to start. His BP is 99/45. WBC = 14 K. There is concern for tick borne illness so lyme, anaplasmosis, ehrlichia labs have been sent and pt has been started empirically on doxycycline. He has been admitted to our ICU for further workup. Principal Diagnosis Bradycardia, hypotension of unknown etiology Discharge Exam Constitutional + thin; no acute distress and not lethargic Eyes + anicteric sclerae Neck trachea midline, no thyromegaly Respiratory normal respiratory effort, lungs clear to auscultation Cardiovascular Rate/Rhythm: regular rhythm and + bradycardic Heart Sounds: no murmur Extremities: no edema Chest (Breasts) Chest: normal inspection of chest Gastrointestinal (Abdomen) normal bowel sounds, soft, nontender, no hepatosplenomegaly Musculoskeletal Extremities: extremities normal to inspection; no cyanosis and no clubbing Skin no rashes, warm and dry Neurologic moves all extremities and awake; no focal motor deficits Psychiatric A+Ox3, euthymic affect Lymphatic no lymphedema Discharge Data Allergies Allergy/AdvReac Type Severity Reaction Status Date / Time amoxicillin Allergy Unknown Verified 09/22/19 13:57 Consultations 09/22/19 09:37 Consult Rn Enterostomal Routine 09/22/19 09:38 Consult Case Management - Discharge Planning Routine 09/22/19 11:57 Consult Cardiology Stat 09/23/19 10:02 Consult [employer] distributor Routine Ordered Studies 09/22/19 12:44 US point of care ultrasound Urgent CXR ECHO Hospital Course (1) Episode of syncope: Was admitted to ICU for lightheadedness, headache, confusion, and then syncope. FOund to have bradycardia in to the 30s, no AV blocks, and hypotension. Was admitted to ICU and started on dopamine gtt. He was given atropine prior to rtansfer here from outside hospital. He was given a dose of glucagon just in case of exogenous ingection of beta hai as there was a question of drug abuse/street drug use. UDS positive for marijuana only. Lyme titer negative, no evidence of infection. Renal function and lytes normal. Weaned off dopamine and then had rates in the 50s that increased to the 60-70 range with ambulating around the fine. Seen by Electrophysiology who said no pacer needed at this time, needs continued outpt follow up. Typically the patient runs 2 miles several times per week as recently as 2 days prior to admission. - Reviewed outside hospital imaging which included CT of head which showed chronic changes of CP without acute findings, and CT of the chest which was negative for pulmonary findings. Unclear etiology at this time. Was given one dose of Rocephin and doxycycline in case of tick borne illness but titer neg for Lyme and ANaplasmosis not known to cause cardiac arrhythmias so abx were discontinued PCP can f/u on final result of Anaplasmosis PCR after discharge Needs outpt Cardiology f/u and pt prefers [facility]-will be scheduled Stable for dc to home advised no drug use, quit smoking (2) Hypotension: (3) Bradycardia: (4) OUSMANE (acute kidney injury): - Cr elevated at 1.14 and BUN of 19.6, however no other labs to compare to this, down to 0.9 on day of dc after IVFs (5) Depression: - Home meds include sertraline and seroquel, has been off these meds due to lapse in insurance x 12 months - but plans to resume them as an outpatient once on his [employer] insurance. However, as Seroquel and SSRI can prolong QT, do not recommend restarting at this time (6) Cerebral palsy: - Chronic, High functioning individual, runs 2 miles per day, Works at [employer], has a 4-month-old son as well as is step father to 3-year-old daughter (7) DVT prophylaxis: - teds, scds CODE: FULL Dispo: stable for dc to home Total Time Total Time Spent Total Time Spent (In Minutes): >30 min Total Time Includes: Examination of the Patient, Discharge Planning, Medication Reconciliation and Communication With Other Providers (Cardiology) Discharge Plan Discharge Items Patient Disposition: Home - Self-Care Reason For Visit: BRADYCARDIA,HYPOTENSION,CP Discharge Diagnosis: Bradycardia, hypotension Condition on Discharge: Good Activity: As commented below Lifting: Gradually increase as tolerated Bathing: No limitations Exercise/Sports: Wait until after follow-up appointment Weightbearing: Full weightbearing Non-emergency contact: Primary Care Provider and Admissions Evaluator Call non-emergency contact if: you have any medication questions and your symptoms worsen Follow-up/Referrals: Humble Leon D.O. [Primary Care Provider] - (Follow up within 1 week.) Diet: Regular Addtl Attending Provider Instructions: Please follow up with the Admissions Evaluator in [place]. Our Nurse Navigator will be helping to arrange this appointment for you. You should take some time off of work and try to stay hydrated. If you develop the same symptoms of lightheadedness or passing out, please return to the hospital right away. Your primary care doctor can follow up on the final results of your Anaplasmosis test ( a tick-borne illness) and the blood cultures that were still pending at the time of your discharge. I do not suspect you have Anaplasmosis and do NOT think you need to take any further antibiotics at this time. Pending Studies at Discharge: Yes (Anaplasmposis PCR and Blood cultures) Stand[facility]Alone [facility]: [facility], Smoking Cessation Medications and DC Order Prescriptions: Discontinued Seroquel 75 mg 75 mg PO HS RF: 0 sertraline 75 mg 75 mg PO DAILY RF: 0 Discharge Orders: Discharge Order (Routine); Ordered 09/23/19 Ordered By: Beth Plummer Admission Data Admit Date/Time: 09/22/19 11:55 Attending Provider: Beth Plummer Admit Provider: Manfred Hooper Primary Care Provider: Humble Leon Other Providers: Shoshana Carbajal ; Louie Maloney Coding Level of Care Code D/C Day Management >30 mins Diagnoses Episode of syncope R55 Hypotension I95.9 Bradycardia R00.1 OUSMANE (acute kidney injury) N17.9 Depression F32.9 Cerebral palsy G80.9 DVT prophylaxis Z29.9
--- NOTE | 2019-09-24 06:52 | Electrocardiogram Report ---
Test Reason : Blood Pressure : / mmHG Vent. Rate : 039 BPM Atrial Rate : 029 BPM P-R Int : 000 ms QRS Dur : 092 ms QT Int : 464 ms P-R-T Axes : 000 103 064 degrees QTc Int : 373 ms Junctional bradycardia Rightward axis Abnormal ECG When compared with ECG of 22-SEP-2019 13:08, Junctional rhythm has replaced Sinus rhythm Confirmed by Louie Maloney ([id number]) on 09/24/2019 6:51:31 AM Referred By: REFERRED SELF Confirmed By:Louie Maloney
[2019-09-24 22:39] LABS: Marijuana Quant, GCMS Urine 607 ng/mL (<5)
== END 2019-09-23 13:43 | disposition home or self-care (01) | DRG 315 ==
LOC: 1E 11:55 → SUATTDRO 11:55